=== PATIENT | male | born 1950 ===

== ENCOUNTER 2017-07-16 12:32 | Outpatient (CLI) | payer OTHER ==
[~2017-07-16] VITALS: Ht 167.6 cm; Wt 74.4 kg
== END 2017-07-16 12:45 | disposition home or self-care (01) ==
LOC: OFIC 805 12:32
DX: E04.1 Nontoxic single thyroid nodule (principal); R49.0 Dysphonia; K21.9 Gastro-esophageal reflux disease without esophagitis